=== PATIENT | male | born 1970 | race Caucasian/White ===

== ENCOUNTER 2016-06-18 08:02 | Day surgery (SDC) | payer BC, OTHER ==
[~2016-06-18 08:02] MED LIST: LIDOCAINE HCL 1%/EPI 1:100,000 - 20 ML VIAL ONE; LIDOCAINE W/ SODIUM BICARB 0.5 ML SYR ONE; Lactated Ringers 1,000 ML PRIMARY IV ONE; SODIUM BICARBONATE 8.4% - 50 ML VIAL ONE
[2016-06-18] MEDS ORDERED: MIDAZOLAM 5 MG/1 ML ONE (08:21)
[2016-06-18] MEDS ORDERED: fentaNYL Inj 100 MCG/2 ML VIAL ONE (08:21)
[2016-06-18] MEDS ORDERED: KETOROLAC 30 MG/1 ML VIAL ONE (09:02)
[2016-06-18] MEDS ORDERED: BUPIVACAINE 0.5% W/ EPI - 10 ML VIAL ONE (09:11)
[2016-06-18] MEDS ORDERED: Lactated Ringers 1,000 ML PRIMARY IV ONE (09:14)
--- NOTE | 2016-06-18 09:34 | GEN.OPNOTE ---
Operative Note Surgery Date: 06/18/16 Preoperative Diagnosis: Right lateral chest wall lipoma. Postoperative Diagnosis: Right lateral subfascial chest wall lipoma. Procedure: Excision 5.5 x 4.5 cm right chest wall lipoma. Surgeon: Benjamin Bridges MD Anesthesia Provider: Dayron Hi CRNA Anesthesia Type: Local (1% Xylocaine with epinephrine and bicarbonate per Benjamin Bridges M.D.), MAC Estimated Blood Loss (mL): 2 Fluids: 1000 mL of crystalloid. 30 mg of IV Toradol at the end of the procedure. Pathology: Specimen to pathology. Indications: Symptomatic mass right chest wall for surgical excision. Clinically consistent with lipoma. Findings: Lipoma extending through the superficial muscle fascia and intertwined was some of the muscle fibers. Excised in entirety. Complications: None. Operative Summary: The patient was taken to the operating suite and placed on the operating table in a supine position. Following adequate IV sedation he was placed in a left lateral decubitus position. The area was prepped and draped in a sterile fashion. A surgical timeout was done. An incision was made overlying the mass. This was carried down through the subcutaneous tissue with electrocautery. Angelika's fascia was incised. The lipoma was enucleated from the surrounding subcutaneous tissue down to the muscle. It extended into the muscle fibers. The lipoma was teased out of the muscle fibers and removed in entirety. Hemostasis was assured. The superficial muscle fascia was closed with running 2-0 Vicryl. The wound was irrigated. Hemostasis was assured. The area was infiltrated with 10 mL of 1/2% Marcaine with epinephrine. Angelika' s fascia was closed with 3-0 Vicryl. The skin was closed with running subcuticular 4-0 Prolene followed by Mastisol Steri-Strips and an appropriate dressing. Patient tolerated the entire procedure well without complication. He was taken to outpatient surgery in stable condition. All counts were correct.
[2016-06-18] MEDS ORDERED: HYDROcodone-APAP 5 MG -325 MG TABLET PO PRN (09:35)
[2016-06-18 09:42] VITALS: RESP 14
[2016-06-18 10:54] VITALS: TEMP 97.3
== END 2016-06-18 10:21 | disposition home or self-care (01) ==
LOC: SDSC 08:02
PROVIDERS: ATTEND Surgery
DX: D17.1 Benign lipomatous neoplasm of skin and subcutaneous tissue of trunk (principal)
CPT/HCPCS: 21554; J1885; J2704; J3010; J2250; J7120